=== PATIENT | female | born 1960 | race Caucasian/White ===

== ENCOUNTER 2021-08-02 10:17 | Outpatient (CLI) | payer BC | END 2021-08-02 10:18 | disposition home or self-care (01) | LOC: BICULT 10:17 | PROVIDERS: ATTEND Internal Medicine Gastroenterology | DX: R10.13 Epigastric pain (principal); K21.9 Gastro-esophageal reflux disease without esophagitis; Z86.010 Personal history of colon polyps | CPT/HCPCS: 76705 ==

== ENCOUNTER 2023-04-18 16:19 | Emergency (ER) | payer MEDICARE, BC ==
[2023-04-18 17:14] LABS: #Monocytes 0.5 thou/uL (0.11-0.59); #Neutrophils 4.2 thou/uL (1.40-6.50); %Basophils 0.3 % (0.0-1.0); %Eosinophils 0.5 % (0.0-10.0); %Lymphocytes 25.4 % (21.0-51.0); %Monocytes 7.5 % (0.0-10.0); %Neutrophils 66.1 % (42.0-75.0); Hematocrit 44.8 % (36.0-47.0); Hemoglobin 15.3 g/dL (12.0-16.0); Mean Corpuscular HGB CONC 34.2 g/dL (32.0-36.0); Mean Corpuscular Hemoglobin 31.5 pg (27.0-31.0); Mean Corpuscular Volume 92.2 fl (78.0-98.0); Mean Platelet Volume 8.3 fL (7.4-10.4); Platelet Count 236 10x3/uL (130-400); RBC Distribution Width 11.6 % (11.5-14.5); Red Blood Cell (RBC) Count 4.86 mill/uL (4.20-5.40); White Blood Cell (WBC) Count 6.4 10x3/uL (4.8-10.8)
[2023-04-18 17:38] LABS: ALT (SGPT) 22 U/L (8-55); AST (SGOT) 19 U/L (5-34); Albumin 4.6 g/dL (3.4-4.8); Alkaline Phosphatase 49 U/L (40-110); Anion Gap 13 mmol/L (10-20); BUN (Urea Nitrogen) 13 mg/dL (9.8-20.1); Bilirubin, Total 0.5 mg/dL (0.2-1.2); Calc. Creatinine Clearance 0 mL/min (70-130); Calcium 9.5 mg/dL (7.8-10.44); Carbon Dioxide 23 mmol/L (23-31); Chloride 110 mmol/L (98-107); Estimated GFR 75; Globulin 2.5 g/dL (2.4-3.5); Glucose 92 mg/dL (80-115); Potassium 4.3 mmol/L (3.5-5.1); Protein, Total 7.1 g/dL (5.8-8.1); Sodium 142 mmol/L (136-145)
== END 2023-04-18 19:09 | disposition home or self-care (01) ==
LOC: ERS 16:19
DX: I47.10 Supraventricular tachycardia, unspecified (principal)
CPT/HCPCS: 36415; 71045; 80053; 84443; 85025; 85379; 93005; 96360; 96361